=== PATIENT | female | born 1995 | race Caucasian/White ===

== ENCOUNTER 2018-12-27 07:30 | Inpatient (IN) | payer BC ==
[~2018-12-27] VITALS: Ht 162.6 cm; Wt 73.0 kg
[2018-12-27 10:25] VITALS: Ht 162.6 cm; Wt 73.0 kg
[2018-12-27 10:26] VITALS: BP 106/71; PULSE 92; RESP 20
[2018-12-27] MEDS ORDERED: OXYTOCIN 30 UNITS/LR 500 ML IV PRN ×2 (10:30→21:00)
[2018-12-27] MEDS ORDERED: METHYLERGONOVINE 0.2 MG INJ IM PRN (10:30)
[2018-12-27] MEDS ORDERED: OXYTOCIN 30 UNITS/LR 500 ML IV SCH ×4 (10:30→11:30)
[2018-12-27] MEDS ORDERED: MISOPROSTOL 200 MCG TAB PR PRN (10:30)
[2018-12-27] MEDS ORDERED: CARBOPROST 250 MCG INJ IM PRN (10:30)
[2018-12-27] MEDS ORDERED: LIDOCAINE 1% (MPF) 30 ML INJ INJ PRN (10:30)
[2018-12-27] MEDS ORDERED: PREN1TAB13 PO (10:42)
[2018-12-27] MEDS: LACTATED RINGER'S 1,000 ML IV SCH ×3 (11:07→20:52)
[2018-12-27] MEDS ORDERED: MISOPROSTOL 50 MCG CAPSULE VAG SCH (11:30)
[2018-12-27] MEDS: MISOPROSTOL 50 MCG CAPSULE VAG SCH ×2 (13:30→19:44)
--- NOTE | 2018-12-27 19:43 | HP ---
Date/Time of Note Date/Time of Note DATE: 12/27/18 TIME: 19:41 OB - History Hx of Present Free Text/Dictation 23 years old p0000 at 40 6/7 weeks for post date IOL. EF 3600 gram GBS negative Cervix is closed, category I tracing Chief Complaint: as above Last Menstrual Period: March 16, 2018 Estimated Due Date: Dec 21, 2018 : 1 Para: 0 Care: Good Care Ultrasounds: Normal mid trimester US Obstetrical Complications: None Past Family/Social History * Past Medical, Surgical, Family and Obstetric Histories reviewed from chart. OB Admission Exam Vital Signs Vital Signs Vital Signs Date Temp Pulse Resp B/P (MAP) Pulse Ox O2 O2 Flow FiO2 Time Delivery Rate 12/27/18 98.6 92 20 106/71 Room Air 10:26 (83) Last 72 hours Lab Results CBC & BMP 12/27/18 10:20 SHEMAR NORRIS M.D. Dec 27, 2018 19:43
[2018-12-27] MEDS ORDERED: BUTORPHANOL 2 MG INJ ONE (23:13)
[2018-12-27] MEDS ORDERED: BUTORPHANOL 2 MG INJ IV PRN (23:30)
[2018-12-28] MEDS: LACTATED RINGER'S 1,000 ML IV SCH ×3 (02:21→10:54)
[2018-12-28] MEDS: MISOPROSTOL 50 MCG CAPSULE VAG SCH ×2 (06:00)
--- NOTE | 2018-12-28 07:19 | PREAC ---
Date/Time of Note Date/Time of Note DATE: 12/28/18 TIME: 07:18 Anesthesia Eval and Record Evaluation Time Pre-Procedure Interview DATE: 12/28/18 TIME: 07:18 Age 23 Sex female NPO: 8 hrs Preoperative diagnosis labor pain Planned procedure epidural Past Medical History Past Medical History: Includes : Gestational age: (39) Surgery & Anesthesia Issues No known issue Meds Anticoagulation: No Beta Vincent within 24 hr: No Reason Beta Vincent not given: Pt. not on B-Vincent Reported Medications Pnv95/Ferrous Fumarate/FA ( Vitamins Tablet) 1 Each Tablet, 1 EACH PO, TAB 12/27/18 Current Medications Lactated Ringer's 1,000 ml @ 125 mls/hr Q8H IV Last administered on 12/28/18at 02:21; Admin Dose 125 MLS/HR; Start 12/27/18 at 10:29 Lidocaine (Xylocaine 1% (Mpf)) 30 ml ONCE PRN INJ .EPISIOTOMY; Start 12/27/18 at 10:30 Oxytocin/Lactated Ringer's 500 ml @ 500 mls/hr ONCE POST IV ; Start 12/27/18 at 10:30 Oxytocin/Lactated Ringer's 500 ml @ 125 mls/hr POST IV ; Start 12/27/18 at 10:30 Oxytocin/Lactated Ringer's 500 ml @ 0 mls/hr ONCE PRN IV .VAGINAL BLEEDING; Start 12/27/18 at 10:30 Methylergonovine Maleate (Methergine) 0.2 mg ONCE PRN IM .VAGINAL BLEEDING; Start 12/27/18 at 10:30 Carboprost Tromethamine (Hemabate) 250 mcg ONCE PRN IM .VAGINAL BLEEDING; Start 12/27/18 at 10:30 Misoprostol (Cytotec) 1,000 mcg ONCE PRN UT .VAGINAL BLEEDING; Start 12/27/18 at 10:30 Oxytocin/Lactated Ringer's 500 ml @ 500 mls/hr ONCE POST IV ; Start 12/27/18 at 11:30 Oxytocin/Lactated Ringer's 500 ml @ 125 mls/hr POST IV ; Start 12/27/18 at 11:30 Oxytocin/Lactated Ringer's 500 ml @ 0 mls/hr FOR AUGMENTATION PRN IV INDUCTION Last administered on 12/28/18at 05:47; Admin Dose 1 MLS/HR; Start 12/27/18 at 21:00 Butorphanol Tartrate (Stadol) 2 mg Q2H PRN IV .PAIN Last administered on 12/27/18at 23:24; Admin Dose 2 MG; Start 12/27/18 at 23:30 Meds reviewed: Yes Allergies Coded Allergies: No Known Allergy (Unverified , 12/27/18) Allergies Reviewed: Yes Labs/Studies Labs Reviewed: Reviewed by anesthesiologist Result Diagram: 12/27/18 1020 Laboratory Tests 12/27/18 10:20 Blood Bank Test 12/27/18 10:20 Antibody Screen NEGATIVE Blood Type A POSITIVE Rh Immune Globulin Candidate NO test: Positive Studies: ECG (n/a), CXR (n/a) Pre-procedure Exam Last vitals Vital Signs Date Temp Pulse Resp B/P (MAP) Pulse Ox O2 O2 Flow FiO2 Time Delivery Rate 12/27/18 98.6 92 20 106/71 Room Air 10:26 (83) Airway: Adequate mouth opening Mallampati: Mallampati I Teeth: Normal Lung: Normal Heart: Normal ASA Physical Status ASA physical status: 2 Emergency: None Planned Anesthetic Neuraxial: Epidural Pre-operative Attestations Prior to commencing anesthesia and surgery, the patient was re-evaluated, there was verification of: *The patient's identity *The results of appropriate recent lab work and preoperative vital signs *The above evaluation not changing prior to induction *Anesthetic plan, risk benefits, alternative and complications discussed with patient/family; questions answered; patient/family understands, accepts and wishes to proceed. BHUMIKA HARRY MD Dec 28, 2018 07:19
[2018-12-28] MEDS ORDERED: FENTAnyl 2MCG/ML-ROPIV 0.2% 100 ML BAG EPI SCH (07:30)
[2018-12-28] MEDS ORDERED: ONDANSETRON 4 MG INJ IV PRN (07:30)
[2018-12-28] MEDS ORDERED: NALOXONE (0.4 MG/ML) INJ IV PRN (07:30)
--- NOTE | 2018-12-28 08:09 | PAC ---
Date/Time of Note Date/Time of Note DATE: 12/28/18 TIME: 08:07 Post-Anesthesia Notes Post-Anesthesia Note Last documented vital signs Vital Signs Date Temp Pulse Resp B/P (MAP) Pulse Ox O2 O2 Flow FiO2 Time Delivery Rate 12/27/18 98.6 92 20 106/71 Room Air 10:26 (83) 12/28/2018 0808 BP 104/59 HR91/ Sat 97%/ Temp 38/ RR18 Activity: WNL Respiratory function: WNL Cardiovascular function: WNL Mental status: Baseline Pain reasonably controlled: Yes Hydration appropriate: Yes Nausea/Vomiting absent: No BHUMIKA HARRY MD Dec 28, 2018 08:09
[2018-12-28] MEDS ORDERED: MINERAL OIL LIGHT 10 ML VIAL ONE (12:39)
[2018-12-28] MEDS ORDERED: OXYTOCIN 30 UNITS/LR 500 ML IV SCH (13:09)
--- NOTE | 2018-12-28 13:14 | LDN ---
Date/Time of Note Date/Time of Note DATE: 12/28/18 TIME: 13:11 Delivery Summary pt fully dilated pushed to deliver a viable baby boy 9/9. Nose and mouth were suctioned cord clamped and cut. handed to patient. Cord blood collected placenta delivered spontanously. pit was started. 2 degree perineal LAC repeaired using 2-0 chromic EBL 300 cc 4 x4 was lef at the vag for tamponade to be removed in one hour Weeks of Gestation 41 Placenta Delivered: Spontaneously Meconium: none Episiotomy: Yes Perineal laceration: 2 Anesthesia type: Epidural Estimated blood loss: 300 Sponge & Needle done & correct: Yes All needle counts correct: Yes SHEMAR NORRIS M.D. Dec 28, 2018 13:14
[2018-12-28] MEDS ORDERED: METHYLERGONOVINE 0.2 MG INJ IM PRN (13:30)
[2018-12-28] MEDS ORDERED: HYDROCODONE/APAP (5/325) TAB PO PRN ×2 (13:30)
[2018-12-28] MEDS ORDERED: MISOPROSTOL 200 MCG TAB PR PRN (13:30)
[2018-12-28] MEDS ORDERED: NACL 0.9% 3 ML SYG IV SCH (13:30)
[2018-12-28] MEDS ORDERED: WITCH HAZEL/GLYCERIN PAD PR PRN (13:30)
[2018-12-28] MEDS ORDERED: OXYTOCIN 30 UNITS/LR 500 ML IV PRN (13:30)
[2018-12-28] MEDS ORDERED: CARBOPROST 250 MCG INJ IM PRN (13:30)
[2018-12-28 16:00] VITALS: BP 124/81; PULSE 81; RESP 18
[2018-12-28 16:30] VITALS: BP 119/79; PULSE 80; RESP 18
[2018-12-28 17:00] VITALS: BP 121/68; PULSE 76; RESP 18
[2018-12-28] MEDS: IBUPROFEN 600 MG TAB PO SCH (17:40)
[2018-12-28 20:10] VITALS: BP 108/64; PULSE 79; RESP 18
[2018-12-28] MEDS: SENNA/DOCUSATE NA (8.6MG/50MG) TAB PO SCH (21:09)
[2018-12-29] VITALS: BP 111/81; PULSE 74; RESP 18
[2018-12-29] MEDS: IBUPROFEN 600 MG TAB PO SCH ×5 (00:18→23:43)
[2018-12-29 04:10] VITALS: BP 120/82; PULSE 76; RESP 16
[2018-12-29 07:28] VITALS: BP 117/77; PULSE 75; RESP 18
[2018-12-29 08:00] VITALS: BP 117/77; PULSE 75; RESP 18
[2018-12-29] MEDS: SENNA/DOCUSATE NA (8.6MG/50MG) TAB PO SCH ×2 (09:15→21:25)
[2018-12-29] MEDS: LACTATED RINGER'S 1,000 ML IV SCH ×2 (10:29→18:29)
[2018-12-29 16:00] VITALS: BP 105/67; PULSE 95; RESP 18
--- NOTE | 2018-12-29 18:09 | QN ---
Documentation Comment PPD#1 pt is feeling well no concerns VSS CBC stable Mild lochia physical exam WNL Plan Routine PP care d/c home tomorrow SHEMAR NORRIS M.D. Dec 29, 2018 18:09
--- NOTE | 2018-12-29 18:10 | DS ---
Date/Time of Note Date/Time of Note DATE: 12/29/18 TIME: 18:09 Discharge Summary Admission/Discharge Info Admit Date/Time Dec 27, 2018 at 09:14 Discharge Date/Time 12/30/18 Discharge Diagnosis Patient Condition: Good Procedures Hospital Course 12/28/18 Home Meds Reported Medications Pnv95/Ferrous Fumarate/FA ( Vitamins Tablet) 1 Each Tablet, 1 EACH PO, TAB 12/27/18 Follow-up Plan 6 weeks Primary Care Provider Not On Staff Doctor Time spent on discharge: < 30 minutes Pending Labs Laboratory Tests Test 12/29/18 06:07 White Blood Count 13.8 10^3/ul (4.8-10.8) Red Blood Count 3.78 10^6/ul (4.20-5.40) Hemoglobin 11.1 g/dl (12.0-16.0) Hematocrit 33.4 % (37.0-47.0) Mean Corpuscular Volume 88.4 fl (82.0-101.0) Mean Corpuscular Hemoglobin 29.4 pg (29.0-33.0) Mean Corpuscular Hemoglobin Concent 33.2 g/dl (32.0-37.0) Red Cell Distribution Width 14.4 % (11.5-14.5) Platelet Count 133 10^3/UL (140-415) Mean Platelet Volume 11.8 fl (7.4-10.4) Immature Granulocytes % 0.900 % (0.001-0.429) Neutrophils % 76.2 % (39.0-77.0) Lymphocytes % 14.9 % (15.0-51.0) Monocytes % 7.3 % (0.0-11.0) Eosinophils % 0.3 % (0.0-7.0) Basophils % 0.4 % (0.0-2.0) Nucleated Red Blood Cells % 0.0 /100WBC (0.0-0.0) Immature Granulocytes # 0.130 10^3/ul (0.0-0.031) Neutrophils # 10.5 10^3/ul (1.6-7.5) Lymphocytes # 2.1 10^3/ul (0.8-2.9) Monocytes # 1.0 10^3/ul (0.3-0.9) Eosinophils # 0.0 10^3/ul (0.0-0.5) Basophils # 0.1 10^3/ul (0.0-0.1) Nucleated Red Blood Cells # 0.0 10^3/ul (0.0-0.0) SHEMAR NORRIS M.D. Dec 29, 2018 18:10
--- NOTE | 2018-12-29 18:11 | PDOCDIS ---
SHEMAR NORRIS M.D. Dec 29, 2018 18:11
--- NOTE | 2018-12-29 18:12 | PDOCDIS ---
Discharge Instructions DIAGNOSIS Discharge Diagnosis CONDITION [id number] Patient Condition: [id number] Good HOME CARE INSTRUCTIONS: [id number] Diet Instructions: [id number] Regular ACTIVITY: [id number] Activity Restrictions: [id number] No Restrictions No Sexual Activity FOLLOW UP/APPOINTMENTS Follow-up Plan 6 weeks SHEMAR NORRIS M.D. Dec 29, 2018 18:12
[2018-12-29 20:00] VITALS: BP 114/77; PULSE 85; RESP 20
[2018-12-30] MEDS: LACTATED RINGER'S 1,000 ML IV SCH (02:29)
[2018-12-30 03:14] VITALS: BP 112/62; PULSE 78; RESP 20
[2018-12-30] MEDS: IBUPROFEN 600 MG TAB PO SCH ×2 (05:26→11:31)
[2018-12-30 08:30] VITALS: BP 108/73; PULSE 88; RESP 16
[2018-12-30] MEDS: SENNA/DOCUSATE NA (8.6MG/50MG) TAB PO SCH (08:47)
== END 2018-12-30 18:28 | disposition home or self-care (01) | DRG 807 ==
LOC: L-D 09:14 → PP1 12-28 16:00
PROVIDERS: ADMIT Obstetrics & Gynecology; ATTEND Obstetrics & Gynecology
PROC: 0KQM0ZZ Repair Perineum Muscle, Open Approach (ICD-10-PCS; 2018-12-27)
PROC: 10E0XZZ Delivery of Products of Conception, External Approach (ICD-10-PCS; principal; 2018-12-27 07:30)
DX: O48.0 Post-term pregnancy (principal); O70.1 Second degree perineal laceration during delivery; Z37.0 Single live birth; Z3A.40 40 weeks gestation of pregnancy
CPT/HCPCS: 62319; 76816; 76818; 85025; 85610; 85730; 86592; 86850; 86900; 86901; 87340; J0595; J2210; J2590; J3010; J7120